=== PATIENT | female | born 1950 | race Caucasian/White ===

== ENCOUNTER → 2016-11-13 | Outpatient (CLI) | payer OTHER, MEDICAID | LOC: CLAB 12:17 | PROVIDERS: ATTEND Family Medicine | DX: R91.8 Other nonspecific abnormal finding of lung field (principal); I51.7 Cardiomegaly | CPT/HCPCS: 71020-PO ==

== ENCOUNTER 2017-12-08 08:57 | Day surgery (SDC) | payer MEDICAID, OTHER ==
--- NOTE | 2017-12-07 13:40 | GHP ---
[f rep st] PREOP HISTORY AND PHYSICAL CHIEF COMPLAINT: Left foot pain. HISTORY OF PRESENT ILLNESS: The patient is a 67 year old who had previously undergone 5th metatarsal osteotomy. The patient was doing well initially but subsequently had an episode which precipitated increasing pain which was limiting her activity. 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 PAST MEDICAL HISTORY: Positive for depression, arthritis, and sleep apnea. PAST SURGICAL HISTORY: Positive for her previous foot surgery. MEDICATIONS: Bupropion; omeprazole; lamotrigine; Restasis; sertraline; clonazepam. ALLERGIES: She is allergic to codeine and hydrocodone both which produce nausea. SOCIAL HISTORY: Negative for tobacco use. PHYSICAL EXAMINATION: GENERAL: She is alert and oriented x3. No apparent distress. HEENT: Head is normocephalic. Pupils are equal, round, and reactive to light. Extraocular eye movements are intact. NECK: Supple. No JVD or lymphadenopathy. CHEST: Clear to auscultation. HEART: Regular rate and rhythm. No murmurs or gallops. ABDOMEN: Soft, nontender, nondistended. No organomegaly. GENITAL/RECTAL/BREASTS: Deferred. EXTREMITIES: Tenderness at the base of her 5th metatarsal. She has a healed incisional scar. 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 PLAN: Based on her persistence of symptoms she is interested in pursuing operative treatment consisting of revision and ORIF with local bone graft. /[id number]/MODL MTDD
[2017-12-08] MEDS ORDERED: LR 1,000 ML IV ONE (09:57)
[2017-12-08] MEDS ORDERED: BUPIVACAINE 0.5% 30 ML SDV ONE (10:16)
--- NOTE | 2017-12-08 10:33 | PDANEPAE ---
ANE Past Medical History - Cardiovascular History Hx Hypertension: No Hx Arrhythmias: No Hx Chest Pain: No Hx Coronary Artery / Peripheral Vascular Disease: No Hx CHF / Valvular Disease: No Cardiovascular History Comment: PRIMARY DID BASELINE EKG WHICH CAME UP IRREGULAR MYOCARDIAL PERFUSION TESTING DONE AND HEART IS "NORMAL" FOR HER - Pulmonary History Hx COPD: No Hx Asthma/Reactive Airway Disease: No Hx Recent Upper Respiratory Infection: No Hx Oxygen in Use at Home: No Hx Sleep Apnea: Yes Sleep Apnea Screening Result - Last Documented: Positive Pulmonary History Comment: [place] USES C-PAP INSTRUCTED TO BRING DOS - Neurologic History Hx Cerebrovascular Accident: No Hx Seizures: No Hx Dementia: No - Endocrine History Hx Diabetes: No - Renal History Hx Renal Disorders: No - Liver History Hx Hepatic Disorders: No - Neurological & Psychiatric Hx Hx Neurological and Psychiatric Disorders: Yes Neurological / Psychiatric History Comment: DEPRESSION - Cancer History Hx Cancer: No - Congenital Disorder History Hx Congenital Disorders: No - GI History Hx Gastrointestinal Disorders: Yes Gastrointestinal History Comment: REFLUX - Other Health History Other Health History: DRY EYES - Chronic Pain History Chronic Pain: Yes (LT FOOT) - Surgical History Prior Surgeries: REMVL HARDWARE LT FOOT 03/2017 AT [facility]. MICHAELA TKA. RIGHT SHOULDER REPAIR FROM FALL. HYSTERECTOMY. RIGHT HIP REPLACEMENT. RIGHT FOOT SURGERY FROM INJURY. CATARACT SURGERY LEFT EYE ANE Review of Systems Review of Systems: - Exercise capacity METS (RN): 4 METS ANE Patient History - Allergies Allergies/Adverse Reactions: No Known Allergies Allergy (Verified 03/17/14 16:09) - Home Medications Home Medications: Cholecalciferol Vit D3 [Vitamin D3 (*)] 2,000 units PO DAILY 03/17/14 [Last Taken 03/31/14] Sertraline HCl [Zoloft 100mg (*)] 200 mg PO DAILY06 03/17/14 [Last Taken 07:00] clonazePAM [klonoPIN (*)] 1 mg PO HS 03/17/14 [Last Taken 05/22/14 22:00] lamoTRIgine [Lamictal] 150 mg PO BID 03/17/14 [Last Taken 12/08/17 07:00] Nexium BID 12/04/17 [Last Taken 12/08/17 07:00] Restasis Opht Drops(*) DAILY 12/04/17 [Last Taken Unknown] Wellbutrin Xl DAILY06 12/04/17 [Last Taken 12/08/17 07:00] - NPO status NPO Since - Liquids (Date): 12/07/17 NPO Since - Liquids (Time): 20:30 NPO Since - Solids (Date): 12/07/17 NPO Since - Solids (Time): 10:30 - Smoking Hx Smoking Status: Former smoker - Family Anes Hx Family Hx Anesthesia Complications: NONE ANE Labs/Vital Signs - Vital Signs Blood Pressure: 114/83 Heart Rate: 63 Respiratory Rate: 18 O2 Sat (%): 92 Height: 165.1 cm Weight: 102.058 kg ANE Physical Exam - Airway Neck exam: FROM Mallampati Score: Class 3 Mouth exam: normal dental/mouth exam - Pulmonary Pulmonary: no respiratory distress - Cardiovascular Cardiovascular: regular rate and rhythym - ASA Status ASA Status: III ANE Anesthesia Plan Anesthesia Plan: GA w LMA
[2017-12-08] MEDS ORDERED: PROPOFOL 200 MG/20 ML VIAL ONE (10:45)
[2017-12-08] MEDS ORDERED: MIDAZOLAM 2 MG/2 ML VIAL ONE (10:45)
[2017-12-08] MEDS ORDERED: fentaNYL 100 MCG/2 ML INJ ONE ×3 (10:45→12:54)
[2017-12-08] MEDS ORDERED: LIDOCAINE 2% 100 MG/5 ML SYR ONE (10:46)
[2017-12-08] MEDS ORDERED: METOCLOPRAMIDE 10 MG/2 ML VIAL ONE (10:46)
[2017-12-08] MEDS ORDERED: DEXAMETHASONE 4 MG/ML VIAL ONE ×2 (10:46)
[2017-12-08] MEDS ORDERED: KETOROLAC 30 MG/1 ML SDV ONE (12:22)
[2017-12-08] MEDS ORDERED: ALBUTEROL 3 ML DEYVIAL IH PRN (12:35)
[2017-12-08] MEDS ORDERED: oxyCODONE IR 5 MG TAB PO PRN (12:35)
[2017-12-08] MEDS ORDERED: ONDANSETRON 4 MG/2 ML VIAL IVP PRN (12:35)
[2017-12-08] MEDS ORDERED: HYDROCODONE/APAP 5/325 TAB PO PRN (12:35)
[2017-12-08] MEDS ORDERED: fentaNYL 100 MCG/2 ML INJ IVP PRN (12:35)
[2017-12-08] MEDS ORDERED: NALOXONE HCL 0.4 MG/ML INJ IVP PRN ×2 (12:35)
--- NOTE | 2017-12-08 12:36 | POSTANESTH ---
Post Anesthetic Evaluation Cardiovascular Status: Similar to Pre-Op Cond Respiratory Status: Similar to Pre-op Cond. Level of Consciousness/Mental Status: Mildly Sleepy, Arousable Pain Control: Adequate, Prn Tx Ordered Nausea/Vomiting Control: Adequate, Prn Tx Ordered Complications Possibly Related to Anesthesia: None Noted
[2017-12-08] MEDS ORDERED: HYDROCODONE/APAP 5/325 TAB ONE (12:54)
--- NOTE | 2017-12-08 13:25 | GOP ---
[f rep st] OPERATIVE REPORT DATE OF OPERATION: 12/08/2017 SURGEON: Richmond Louis MD ANESTHESIA: General. PREOPERATIVE DIAGNOSIS: 1. 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 2. Retained hardware, left foot. POSTOPERATIVE DIAGNOSIS: 1. 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 2. Retained hardware, left foot. PROCEDURE PERFORMED: 1. Open reduction and internal fixation of left 5th metatarsal nonunion. 2. Hardware removal, left foot. 3. Local bone graft. 4. Intraoperative use of fluoroscopy. FINDINGS: ESTIMATED BLOOD LOSS: Minimal. INDICATIONS: The patient is a 67-year-old who had previously undergone a 5th metatarsal base osteoto my. The patient did well initially, but subsequently developed worsening pain. Upon CT scan evaluat ion, she was noted to have a nonunion of her osteotomy site. Based on her persistence of symptoms, s he was interested in pursuing operative treatment and operative treatment was recommended. From an o perative standpoint, open reduction and internal fixation of her nonunion with local bone graft was r ecommended. The patient acknowledged that she understood the potential risks of the operation includ ing, but not limited to, bleeding, infection, neurovascular damage, loss of limb function, malunion, nonunion, need for hardware removal, pain, or functional limitations, despite operative treatment as well as anesthetic risk. She acknowledged that she understood the potential risks, planned procedure , and postoperative plan well and had all questions answered prior to surgery. She gave consent for the operative procedure. DESCRIPTION OF PROCEDURE: The patient was brought to the operating after IV antibiotics were adminis tered. She was placed in a supine position where a general anesthetic was administered. A tournique t was placed on her left thigh, a bump underneath the left hip and shoulder, and the left lower extre mity was prepped and draped in the standard sterile fashion. After marking the incision and Mohan wrap exsanguination, the tourniquet was inflated to 250. A previous incision was utilized for exposure a nd extended slightly proximally. The skin and subcutaneous tissue were sharply incised and care was taken to avoid damage to the sural and superficial peroneal nerves. Dissection was carried down to t he dorsal lateral aspect of the 5th metatarsal. Limited periosteal reflection was performed to allow for access to the nonunion and hardware placement. Two 2.4 mm cortical screws, which had previously been placed, were identified and removed. Under fluoroscopic guidance, the nonunion site was identi fied. Interpose fibrous tissue was removed with rongeur, curette, and chisel. A 2.4 mm T-plate was contoured to fit the base of the 5th metatarsal. Through the center hole on the T portion of the jessica te a 2.7 mm cortical screw was placed through the plate and down the intramedullary canal of the 5th metatarsal gaining good purchase distally. When the plate was placed proximally care was taken to av oid damage to the peroneus brevis tendon at its insertion. The distal fixation was then accomplished with two 2.4 mm cortical screws just distal to the nonunion site and in the most distal hole on the plate. A supplemental 2.4 mm cortical screw was placed in one of the additional proximal holes of th e plate. Fluoroscopic views confirmed favorable hardware placement and osteotomy reduction. Attention was then directed toward bone graft harvesting. A stab incision was made along the lateral aspect of the calcaneal tuberosity. The lateral cortex was perforated with a 4.5 mm drill bit. The 3.2 mm drill sleeve was utilized to harvest multiple cancellous bone plugs and bone graft was then i mpacted into place at the nonunion site. Attention was directed toward closure and the deep tissue was closed with 2-0 Vicryl suture in an int errupted fashion, subcutaneous tissue was closed with 3-0 Vicryl suture in an interrupted fashion, an d skin was closed with 3-0 nylon interrupted vertical mattress sutures. The wounds were dressed with sterile Adaptic, 4 x 4, and Kerlix after injecting 0.5% Marcaine without epinephrine into the wound site. The patient was placed in a fracture boot, taken to the recovery room, and extubated in stable condition postoperatively. SURGEON: Richmond Louis MD DRAINS: None. COMPLICATIONS: None. INSTRUMENT COUNT: All sponge, needle, and instrument counts were reported as being correct. PLAN: The patient will be discharged weightbearing as tolerated in her fracture boot. /[id number]/MODL
[2017-12-08 14:21] VITALS: BP 134/55
== END 2017-12-08 15:10 ==
LOC: FSGY 08:57
PROVIDERS: ATTEND Orthopaedic Surgery Foot and Ankle Surgery
PROC: 0QUN07Z Supplement Right Metatarsal with Autologous Tissue Substitute, Open Approach (ICD-10-PCS; principal; 2017-12-08 11:00)
PROC: 0SP Lower Joints, Removal (ICD-10-PCS; principal; 2017-12-08 11:00)
DX: M96.89 Other intraoperative and postprocedural complications and disorders of the musculoskeletal system (principal); F32.9 Major depressive disorder, single episode, unspecified; G47.33 Obstructive sleep apnea (adult) (pediatric); Z96.653 Presence of artificial knee joint, bilateral; Z96.641 Presence of right artificial hip joint
CPT/HCPCS: C1713; J1100; J1885; J2001; J2250; J2704; J2765; J3010